=== PATIENT | female | born 1955 | race Two or more races ===

== ENCOUNTER 2018-02-01 08:40 | Outpatient (CLI) | payer OTHER ==
[~2018-02-01 08:40] MED LIST: SYNTHROID50 MCG PO
== END 2018-02-01 08:58 | disposition home or self-care (01) ==
LOC: TOM 08:40
DX: K59.09 Other constipation (principal); R14.0 Abdominal distension (gaseous); R19.4 Change in bowel habit; E07.89 Other specified disorders of thyroid

== ENCOUNTER → 2018-02-02 | Day surgery (SDC) | payer OTHER | END | disposition home or self-care (01) | LOC: CIR.AMB 01-19 11:34 | DX: D05.01 Lobular carcinoma in situ of right breast (principal) ==

== ENCOUNTER 2024-11-21 08:16 | Outpatient (CLI) | payer OTHER | END 2024-11-21 08:30 | disposition home or self-care (01) | LOC: TOM 08:16 | PROVIDERS: ATTEND Internal Medicine Gastroenterology | DX: K92.1 Melena (principal); R14.0 Abdominal distension (gaseous); R10.9 Unspecified abdominal pain ==